=== PATIENT | male | born 1990 | race African-American/Black ===

== ENCOUNTER 2017-05-03 15:36 | Emergency (ER) | payer OTHER ==
--- NOTE | ~2017-05-03 | CR281 ---
[facility] A Service of [facility] & [facility] RADIOLOGY TEXT RESULTS PATIENT: SPENCER SEAMAN LOCATION: CFTX : 88 UNIT #: [id number] AGE: [address]: Jeanne Sarakr SEX: M ORDER DR: [id number] [facility] [address] [place], [place] [address] [id number] E MR#: [id number] Acc #: [id number] NAME: SPENCER SEAMAN : 1990 SEX: M STUDY DATE/TIME: 05/03/2017 16:16 UNIT: [facility] ROOM: STUDY DESCRIPTION: CR Wrist Min 3 View Lt Attending Physician: Jeanne Sarkar Pa-C Ordering Physician: Jeanne Sarkar Pa-C Primary Care Physician: Primary Care Physician No MEDICAL IMAGING REPORT This report is preliminary unless electronic signature is present EXAM Left wrist 3 views INDICATION Wrist pain and swelling for 3 months. COMPARISON No comparisons. FINDINGS No acute fracture. Carpal alignment maintained. Soft tissue structures are unremarkable. IMPRESSION Negative. Dictated by... Franck Martinez M.D. THIS IS AN ELECTRONICALLY VERIFIED REPORT Franck Martinez M.D. at 05/05/2017 7:44 AM Yaniv TD: 05/04/2017 08:17 JOB #: [id number] MEDICAL IMAGING REPORT Page 1 of 1 COPY
== END 2017-05-03 17:05 | disposition home or self-care (01) ==
LOC: CED 15:36 → CFTX 15:36
DX: M25.532 Pain in left wrist (principal); F17.200 Nicotine dependence, unspecified, uncomplicated; Y04.0XXA Assault by unarmed brawl or fight, initial encounter
CPT/HCPCS: 73110; 99283